=== PATIENT | female | born 1940 | race Caucasian/White ===

== ENCOUNTER 2018-06-24 16:37 | Outpatient (CLI) | payer MEDICARE ==
--- NOTE | 2018-06-24 18:57 | SJPRAD ---
LEFT HIP TWO VIEWS 06/24/18 HISTORY: Acute hip pain. The bones appear demineralized. There are arthritic changes of the hip with spurring along the femor al head and neck junction. Minimal joint space narrowing is seen. No signs of any fracture. 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 POS: [place]
[2018-06-25 16:13] LABS: ALT (SGPT) 74 U/L (8-55); AST (SGOT) 87 U/L (5-34); Albumin 3.9 g/dL (3.4-4.8); Alkaline Phosphatase 104 U/L (40-150); Anion Gap 16 mmol/L (10-20); Anisocytosis SLIGHT = 6-15 cells (100X) (0-5/hpf); BUN (Urea Nitrogen) 22 mg/dL (9.8-20.1); Band 5 % (5-11); Bilirubin, Total 0.3 mg/dL (0.2-1.2); Calc. Creatinine Clearance 0 mL/min (70-130); Calcium 9.7 mg/dL (7.8-10.44); Carbon Dioxide 26 mmol/L (23-31); Chloride 104 mmol/L (98-107); Eosinophils 3 % (0-10); Estimated GFR-MDRD 49; Globulin 3.1 g/dL (2.4-3.5); Glucose 97 mg/dL (83-110); Hemoglobin 11.7 g/dL (12.0-16.0); Lymphocytes 16 % (21-51); MDiff Complete? YES; Mean Corpuscular HGB CONC 31.3 g/dL (32.0-36.0); Mean Corpuscular Volume 95.6 fL (78.0-98.0); Mean Platelet Volume 7.3 fL (7.4-10.4); Monocytes 9 % (0-10); Neutrophil 62 % (42-75); Nucleated RBC 3 % (0); Platelet Count 251 thou/uL (130-400); Platelet Morphology Comment Appears Adequate; Potassium 5.9 mmol/L (3.5-5.1); RBC Distribution Width 14.3 % (11.5-14.5); Reactive Lymphocytes 4 % (0-10); Red Blood Cell (RBC) Count 3.89 mill/uL (4.20-5.40); Sodium 140 mmol/L (136-145); White Blood Cell (WBC) Count 12.3 thou/uL (4.8-10.8)
== END 2018-06-24 16:38 | disposition home or self-care (01) ==
LOC: MWLC RAD 16:37
PROVIDERS: ATTEND Family Medicine
DX: M25.552 Pain in left hip (principal); M16.12 Unilateral primary osteoarthritis, left hip
CPT/HCPCS: 80053; 85025